=== PATIENT | female | born 1955 | race Caucasian/White ===

== ENCOUNTER 2021-04-18 13:18 | Outpatient (REF) | payer BC, SELFPAY | END 2021-04-18 13:19 | disposition home or self-care (01) | LOC: HO.BBR 13:18 | PROVIDERS: Visit Provider Internal Medicine Hematology & Oncology | DX: D75.1 Secondary polycythemia (principal) | CPT/HCPCS: 36415; 85018; 99195 ==

== ENCOUNTER 2021-04-25 13:46 | Outpatient (REF) | payer BC, SELFPAY | END 2021-04-25 13:47 | disposition home or self-care (01) | LOC: HO.BBR 13:46 | PROVIDERS: Visit Provider Internal Medicine Hematology & Oncology | DX: D75.1 Secondary polycythemia (principal) | CPT/HCPCS: 85014; 85018; 99195 ==

== ENCOUNTER 2021-05-02 12:13 | Outpatient (REF) | payer BC, SELFPAY | END 2021-05-02 12:14 | disposition home or self-care (01) | LOC: HO.BBR 12:13 | PROVIDERS: Visit Provider Internal Medicine Hematology & Oncology | DX: D75.1 Secondary polycythemia (principal) | CPT/HCPCS: 36415; 85018; 99195 ==

== ENCOUNTER 2021-06-21 12:12 | Outpatient (REF) | payer BC, SELFPAY | END 2021-06-21 12:13 | disposition home or self-care (01) | LOC: HO.BBR 12:12 | PROVIDERS: Visit Provider Internal Medicine Hematology & Oncology | DX: D75.1 Secondary polycythemia (principal) | CPT/HCPCS: 85018 ==

== ENCOUNTER 2021-06-27 13:04 | Outpatient (REF) | payer BC, SELFPAY | END 2021-06-27 13:05 | disposition home or self-care (01) | LOC: HO.BBR 13:04 | PROVIDERS: Visit Provider Internal Medicine Hematology & Oncology | DX: D75.1 Secondary polycythemia (principal) | CPT/HCPCS: 85014; 85018; 99195 ==

== ENCOUNTER 2021-07-09 08:04 | Outpatient (REF) | payer BC, SELFPAY | END 2021-07-09 08:05 | disposition home or self-care (01) | LOC: HO.BBR 08:04 | PROVIDERS: Visit Provider Internal Medicine Hematology & Oncology | DX: D75.1 Secondary polycythemia (principal) | CPT/HCPCS: 85014; 85018; 99195 ==

== ENCOUNTER 2021-08-08 08:04 | Outpatient (REF) | payer BC, SELFPAY | END 2021-08-08 08:05 | disposition home or self-care (01) | LOC: HO.BBR 08:04 | PROVIDERS: Visit Provider Internal Medicine Hematology & Oncology | DX: D75.1 Secondary polycythemia (principal) | CPT/HCPCS: 85014; 85018; 99195 ==

== ENCOUNTER 2024-07-01 12:58 | Outpatient (REF) | payer BC, MEDICARE, SELFPAY | END 2024-07-01 12:59 | disposition home or self-care (01) | LOC: HO.BBR 12:58 | PROVIDERS: PCP Nurse Practitioner Gerontology; Visit Provider Internal Medicine Hematology | DX: Z13.89 Encounter for screening for other disorder (principal) | CPT/HCPCS: 85014; 85018; 99195 ==